=== PATIENT | male | born 1940 | race Caucasian/White ===

== ENCOUNTER 2017-07-22 16:42 | Inpatient (IN) ==
[2017-07-22 18:30] LABS: Basophils % 0.9 % (0.0-0.8); Eosinophils # 0.1 10*3/uL (0.0-0.87); Eosinophils % 2.1 % (0.00-10.9); Immature Granulocytes % 0.3 %; Immature Granulocytes Absolute 0.01 #; Lymphocytes % 31.1 % (21.2-54.2); Mean Corpuscular HGB Conc 34.4 GM/DL (32-36); Mean Corpuscular Hemoglobin 34 PG (27-34); Mean Corpuscular Volume 98.2 FL (87-102); Monocytes # 0.5 10*3/uL (0.11-0.8); Monocytes % 15.9 % (1.7-12.7); Neutrophils # 1.6 10*3/uL (1.4-7.4); Neutrophils % 49.7 % (38.7-73.9); Platelet Count 50 T/CUMM (130-400); Red Blood Count 3.26 MC/CUMM (3.8-5.5); Red Cell Distribution Width 12.9 % (9.3-17.3); White Blood Count 3.3 T/CUMM (4-12)
[2017-07-22 18:56] LABS: Osmolality,Calculated 280.4 MOS/KG (273-304); Potassium 4.1 MMOL/L (3.5-5.1)
[2017-07-22 19:00] LABS: Alanine Aminotransferase 25 U/L (16-61); Albumin 2.7 G/DL (3.4-5.0); Alkaline Phosphatase 181 U/L (45-117); Aspartate Amino Transferase 35 U/L (0-37); Blood Urea Nitrogen 13 MG/DL (7-18); Glucose 127 MG/DL (74-106); Osmolality,Calculated 280.4 MOS/KG (273-304); Sodium 140 MMOL/L (136-145); Total Protein 5.9 G/DL (6.4-8.3); Troponin I Only 0.029 NG/ML (0.00-0.045)
[2017-07-22] MEDS ORDERED: oxyCODONE/ACETAMINOPHEN 5-325 MG TABLET PO STA ×2 (20:27→22:39)
[2017-07-22] MEDS ORDERED: oxyCODONE/ACETAMINOPHEN 5-325 MG TABLET ONE ×2 (20:34→22:36)
[2017-07-23] MEDS ORDERED: ONDANSETRON 4 MG/2 ML VIAL IV PRN (00:25)
[2017-07-23] MEDS ORDERED: diphenhydrAMINE CAP 25 MG CAPSULE PO PRN (00:25)
[2017-07-23] MEDS ORDERED: DOCUSATE SODIUM 100 MG CAPSULE PO PRN (00:25)
[2017-07-23] MEDS ORDERED: ACETAMINOPHEN 325 MG TABLET PO PRN (00:25)
[2017-07-23] MEDS ORDERED: ENOXAPARIN 80 MG/0.8 ML SYRINGE SUBCUT ONE (00:30)
[2017-07-23] MEDS ORDERED: LORazepam 0.5 MG TABLET PO PRN (01:20)
[2017-07-23] MEDS ORDERED: MECLIZINE 25 MG TABLET PO PRN (01:20)
[2017-07-23] MEDS ORDERED: hydrALAZINE 20 MG/1 ML VIAL IV PRN (01:20)
[2017-07-23] MEDS: CARISOPRODOL 350 MG TABLET PO PRN (01:56)
[2017-07-23] MEDS: SODIUM CHLORIDE 0.45% 1,000 ML IV SCH ×2 (01:56→23:58)
[2017-07-23 05:09] LABS: Basophils % 0.8 % (0.0-0.8); Eosinophils # 0.1 10*3/uL (0.0-0.87); Eosinophils % 2.7 % (0.00-10.9); Hemoglobin 11.4 GM/DL (14.0-18.0); Immature Granulocytes % 0.2 %; Immature Granulocytes Absolute 0.01 #; Lymphocytes # 1.6 10*3/uL (1.4-4.0); Lymphocytes % 33.5 % (21.2-54.2); Mean Corpuscular HGB Conc 35.6 GM/DL (32-36); Mean Corpuscular Hemoglobin 34 PG (27-34); Mean Corpuscular Volume 95.8 FL (87-102); Mean Platelet Volume 10.8 FL (9.6-12.0); Monocytes # 0.6 10*3/uL (0.11-0.8); NRBC # 0.02 10*3/uL; Neutrophils # 2.4 10*3/uL (1.4-7.4); Neutrophils % 50.8 % (38.7-73.9); Red Blood Count 3.34 MC/CUMM (3.8-5.5); Red Cell Distribution Width 12.7 % (9.3-17.3); White Blood Count 4.7 T/CUMM (4-12)
[2017-07-23 05:12] LABS: Platelet Count 54 T/CUMM (130-400)
[2017-07-23 05:41] LABS: Calcium 8.1 MG/DL (8.5-10.1); Osmolality,Calculated 284.8 MOS/KG (273-304); Risk Ratio 2.23; VLDL CHOLESTEROL 14.6 MG/DL
[2017-07-23 07:43] LABS: Hypochromasia Slight
[2017-07-23] MEDS ORDERED: BISACODYL 5 MG TABLET PO PRN (09:32)
[2017-07-23] MEDS: MORPHINE 4 MG/1 ML VIAL IV PRN ×3 (09:42→19:26)
[2017-07-23] MEDS: TAMSULOSIN 0.4 MG CAPSULE PO SCH ×2 (10:56→20:51)
[2017-07-23] MEDS: LORATADINE 10 MG TABLET PO SCH (10:56)
[2017-07-23] MEDS: PANTOPRAZOLE 40 MG TABLET PO SCH (10:56)
[2017-07-23] MEDS: ASPIRIN EC 81 MG TABLET PO SCH (10:56)
[2017-07-23] MEDS: oxyCODONE/ACETAMINOPHEN 5-325 MG TABLET PO SCH ×3 (10:56→20:51)
[2017-07-23] MEDS: OMEGA 3 ACID ETHYL ESTERS 1 GM CAPSULE PO SCH (10:57)
[2017-07-23] MEDS: traZODone 50 MG TABLET PO SCH (20:51)
[2017-07-23] MEDS: ZALEPLON 5 MG CAPSULE PO PRN (23:51)
[2017-07-24] MEDS: CARISOPRODOL 350 MG TABLET PO PRN (00:17)
[2017-07-24] MEDS: MORPHINE 4 MG/1 ML VIAL IV PRN (04:53)
[2017-07-24 05:24] LABS: Basophils # 0.1 10*3/uL (0.0-0.2); Basophils % 1.4 % (0.0-0.8); Eosinophils # 0.1 10*3/uL (0.0-0.87); Eosinophils % 3.6 % (0.00-10.9); Hematocrit 33.3 VOL% (42.0-52.0); Hemoglobin 11.3 GM/DL (14.0-18.0); Lymphocytes # 1.6 10*3/uL (1.4-4.0); Mean Corpuscular HGB Conc 33.9 GM/DL (32-36); Mean Corpuscular Hemoglobin 34 PG (27-34); Mean Corpuscular Volume 99.7 FL (87-102); Mean Platelet Volume 10.8 FL (9.6-12.0); Monocytes # 0.5 10*3/uL (0.11-0.8); Monocytes % 13.5 % (1.7-12.7); Neutrophils # 1.3 10*3/uL (1.4-7.4); Neutrophils % 36.5 % (38.7-73.9); Platelet Count 52 T/CUMM (130-400); Red Blood Count 3.34 MC/CUMM (3.8-5.5); White Blood Count 3.6 T/CUMM (4-12)
[2017-07-24 05:53] LABS: Calcium 8.1 MG/DL (8.5-10.1); Osmolality,Calculated 281.1 MOS/KG (273-304); Potassium 4.2 MMOL/L (3.5-5.1)
[2017-07-24 07:01] LABS: Hypochromasia 2+; Lymphocytes 38 % (20-55); Platelet Estimate Decreased; Segmented Neutrophils 53 % (50-85); Total Cells Counted 100
[2017-07-24] MEDS: oxyCODONE/ACETAMINOPHEN 5-325 MG TABLET PO SCH ×3 (08:05→20:12)
[2017-07-24] MEDS: TAMSULOSIN 0.4 MG CAPSULE PO SCH ×2 (08:40→21:13)
[2017-07-24] MEDS: ASPIRIN EC 81 MG TABLET PO SCH (08:40)
[2017-07-24] MEDS: POLYETHYLENE GLYCOL POWDER 17 GM PACK PO SCH (08:40)
[2017-07-24] MEDS: OMEGA 3 ACID ETHYL ESTERS 1 GM CAPSULE PO SCH (08:40)
[2017-07-24] MEDS: LORATADINE 10 MG TABLET PO SCH (08:40)
[2017-07-24] MEDS: PANTOPRAZOLE 40 MG TABLET PO SCH (08:41)
[2017-07-24 15:36] LABS: Apearance,Urine CLEAR (Clear); Bilirubin,Urine Negative (Negative); Blood, Urine Small mg/dL (Negative); Glucose,Urine (UA) Negative (Negative); Ketones,Urine Negative (Negative); Nitrite,Urine Negative (Negative); Protein,Urine Negative; RBC,Urine <1 /HPF (0-4); Urine Color Yellow (Yellow); Urine Specific Gravity 1.008 (1.001-1.035); WBC,Urine <1 /HPF (0-6)
[2017-07-24] MEDS ORDERED: SODIUM CHLORIDE 0.9% 1,000 ML IV PRN (16:41)
[2017-07-24] MEDS: SODIUM CHLORIDE 0.45% 1,000 ML IV SCH (20:12)
[2017-07-24] MEDS: ZALEPLON 5 MG CAPSULE PO PRN (21:13)
[2017-07-24] MEDS: traZODone 50 MG TABLET PO SCH (21:13)
[2017-07-25 04:27] LABS: Basophils % 0.9 % (0.0-0.8); Eosinophils # 0.1 10*3/uL (0.0-0.87); Eosinophils % 3.5 % (0.00-10.9); Hematocrit 30.1 VOL% (42.0-52.0); Hemoglobin 10.6 GM/DL (14.0-18.0); Immature Granulocytes % 0.3 %; Immature Granulocytes Absolute 0.01 #; Lymphocytes # 1.2 10*3/uL (1.4-4.0); Lymphocytes % 38.5 % (21.2-54.2); Mean Corpuscular HGB Conc 35.2 GM/DL (32-36); Mean Corpuscular Hemoglobin 34 PG (27-34); Mean Corpuscular Volume 95.6 FL (87-102); Mean Platelet Volume 9.9 FL (9.6-12.0); Monocytes # 0.4 10*3/uL (0.11-0.8); Monocytes % 12.9 % (1.7-12.7); Neutrophils # 1.4 10*3/uL (1.4-7.4); Neutrophils % 43.9 % (38.7-73.9); Red Blood Count 3.15 MC/CUMM (3.8-5.5); Red Cell Distribution Width 12.9 % (9.3-17.3); White Blood Count 3.2 T/CUMM (4-12)
[2017-07-25 04:29] LABS: Platelet Count 61 T/CUMM (130-400)
[2017-07-25 04:49] LABS: Hypochromasia 1+; Microcytosis 1+; Platelet Estimate Decreased
[2017-07-25 04:54] LABS: Calcium 8.1 MG/DL (8.5-10.1); Potassium 3.9 MMOL/L (3.5-5.1)
[2017-07-25] MEDS: MORPHINE 4 MG/1 ML VIAL IV PRN (05:04)
[2017-07-25] MEDS ORDERED: PROPOFOL 200 MG/20 ML VIAL IV ONE (07:46)
[2017-07-25] MEDS ORDERED: LIDOCAINE 1% 5 ML VIAL ONE (07:46)
[2017-07-25 08:46] LABS: INR 1.3; PT Patient Result 13.4 SECS; Partial Thromboplastin Time 31.7 SECS (0-40)
[2017-07-25] MEDS: PANTOPRAZOLE 40 MG TABLET PO SCH (09:30)
[2017-07-25] MEDS: LORATADINE 10 MG TABLET PO SCH (09:31)
[2017-07-25] MEDS: OMEGA 3 ACID ETHYL ESTERS 1 GM CAPSULE PO SCH (09:31)
[2017-07-25] MEDS: TAMSULOSIN 0.4 MG CAPSULE PO SCH (09:31)
[2017-07-25] MEDS: oxyCODONE/ACETAMINOPHEN 5-325 MG TABLET PO SCH (09:32)
[2017-07-25] MEDS: POLYETHYLENE GLYCOL POWDER 17 GM PACK PO SCH (09:36)
[2017-07-25 11:55] VITALS: BP 166/68
[2017-07-26] MEDS ORDERED: CHOLECALCIFEROL 5,000 UNIT TABLET PO SCH (00:27)
== END 2017-07-25 14:24 | disposition home or self-care (01) | DRG 384 ==
LOC: EDUNIT# → EDBD → N.ED 16:42 → N.EDINP 23:23 → N.TELEN 23:54
PROVIDERS: ADMIT Internal Medicine Cardiovascular Disease; ATTEND Internal Medicine Cardiovascular Disease

== ENCOUNTER 2018-07-07 16:54 | Inpatient (IN) ==
[2018-07-07 18:20] LABS: Basophils % 0.5 % (0.0-0.8); Eosinophils # 0.1 10*3/uL (0.0-0.87); Eosinophils % 1.6 % (0.00-10.9); Hematocrit 40.9 VOL% (42.0-52.0); Hemoglobin 13.8 GM/DL (14.0-18.0); Immature Granulocytes % 0.5 %; Immature Granulocytes Absolute 0.04 #; Lymphocytes # 1.4 10*3/uL (1.4-4.0); Lymphocytes % 17.4 % (21.2-54.2); Mean Corpuscular HGB Conc 33.7 GM/DL (32-36); Mean Corpuscular Hemoglobin 34 PG (27-34); Mean Corpuscular Volume 99.8 FL (87-102); Mean Platelet Volume 10.8 FL (9.6-12.0); Monocytes # 1.1 10*3/uL (0.11-0.8); Monocytes % 14.4 % (1.7-12.7); Neutrophils # 5.2 10*3/uL (1.4-7.4); Neutrophils % 65.6 % (38.7-73.9); Platelet Count 55 T/CUMM (130-400); Red Cell Distribution Width 13.3 % (9.3-17.3); White Blood Count 7.9 T/CUMM (4-12)
[2018-07-07 18:30] LABS: Eosinophils 1 % (0-10); Lymphocytes 18 % (20-55); Segmented Neutrophils 72 % (50-85); Total Cells Counted 100
[2018-07-07 18:32] LABS: Hypochromasia 1+; Platelet Estimate Decreased
[2018-07-07 19:04] LABS: Albumin 3.1 G/DL (3.4-5.0); Bilirubin,Total 1.7 MG/DL (0.2-1.0); Calcium 9.4 MG/DL (8.5-10.1); Osmolality,Calculated 286.5 MOS/KG (273-304); Potassium 3.1 MMOL/L (3.5-5.1); Total Protein 6.8 G/DL (6.4-8.3)
[2018-07-07] MEDS ORDERED: oxyCODONE/ACETAMINOPHEN 5-325 MG TABLET PO STA (19:55)
[2018-07-07 20:07] LABS: Apearance,Urine CLEAR (Clear); Bilirubin,Urine Negative (Negative); Blood, Urine Small mg/dL (Negative); Glucose,Urine (UA) 50 mg/dL (Negative); Ketones,Urine Negative (Negative); Mucus,Urine Occasional /LPF (Occasional); Nitrite,Urine Negative (Negative); Protein,Urine Negative; RBC,Urine 3 /HPF (0-4); Urine Color Yellow (Yellow); Urine Specific Gravity 1.018 (1.001-1.035); Urine Urobilinogen < 2.0 EU/DL (0.2-1.0); WBC,Urine 1 /HPF (0-6)
[2018-07-07] MEDS ORDERED: POTASSIUM CHLORIDE 20 MEQ TABLET PO STA (20:08)
[2018-07-07] MEDS ORDERED: LACTULOSE 20 GM/30 ML UDCUP PO STA (21:11)
[2018-07-07] MEDS ORDERED: GLUCAGON 1 MG VIAL IM PRN (23:28)
[2018-07-07] MEDS ORDERED: DEXTROSE 50% 25 GM/50 ML SYRINGE IV PRN (23:28)
[2018-07-07] MEDS ORDERED: ONDANSETRON 4 MG/2 ML VIAL IV PRN (23:28)
[2018-07-07] MEDS ORDERED: ASPIRIN EC 81 MG TABLET PO SCH (23:28)
[2018-07-08] MEDS: TAMSULOSIN 0.4 MG CAPSULE PO SCH ×2 (00:22→08:18)
[2018-07-08] MEDS: oxyCODONE/ACETAMINOPHEN 5-325 MG TABLET PO PRN ×2 (00:31→08:16)
[2018-07-08 04:41] LABS: Basophils # 0.1 10*3/uL (0.0-0.2); Basophils % 0.8 % (0.0-0.8); Eosinophils # 0.1 10*3/uL (0.0-0.87); Eosinophils % 2.1 % (0.00-10.9); Hematocrit 36.1 VOL% (42.0-52.0); Hemoglobin 12.2 GM/DL (14.0-18.0); Immature Granulocytes % 0.3 %; Immature Granulocytes Absolute 0.02 #; Lymphocytes # 1.6 10*3/uL (1.4-4.0); Lymphocytes % 25.1 % (21.2-54.2); Mean Corpuscular HGB Conc 33.8 GM/DL (32-36); Mean Corpuscular Hemoglobin 34 PG (27-34); Mean Corpuscular Volume 100.3 FL (87-102); Mean Platelet Volume 9.8 FL (9.6-12.0); Monocytes # 0.9 10*3/uL (0.11-0.8); Monocytes % 13.9 % (1.7-12.7); Neutrophils # 3.6 10*3/uL (1.4-7.4); Neutrophils % 57.8 % (38.7-73.9); Red Cell Distribution Width 13.2 % (9.3-17.3); White Blood Count 6.3 T/CUMM (4-12)
[2018-07-08 04:44] LABS: Platelet Count 49 T/CUMM (130-400)
[2018-07-08 05:04] LABS: Albumin 2.6 G/DL (3.4-5.0); Bilirubin,Total 2.1 MG/DL (0.2-1.0); Calcium 8.5 MG/DL (8.5-10.1); Osmolality,Calculated 285.4 MOS/KG (273-304); Potassium 2.9 MMOL/L (3.5-5.1); Risk Ratio 2.79; Total Protein 6.3 G/DL (6.4-8.3); VLDL CHOLESTEROL 20.2 MG/DL
[2018-07-08] MEDS: POTASSIUM CHLORIDE 20 MEQ TABLET PO PRN ×2 (06:11→12:21)
[2018-07-08] MEDS ORDERED: FUROSEMIDE 20 MG TABLET PO SCH (08:00)
[2018-07-08] MEDS: POLYETHYLENE GLYCOL POWDER 17 GM PACK PO SCH ×2 (08:16→08:23)
[2018-07-08] MEDS: LACTULOSE 20 GM/30 ML UDCUP PO SCH ×2 (08:17→16:54)
[2018-07-08] MEDS: INSULIN LISPRO 100 UNIT/ML SUBCUT SCH ×3 (08:18→16:56)
[2018-07-08] MEDS ORDERED: LORATADINE 10 MG TABLET PO SCH (09:00)
[2018-07-08] MEDS ORDERED: FERROUS GLUCONATE 324 MG TABLET PO SCH (09:00)
[2018-07-08] MEDS ORDERED: metOLazone 2.5 MG TABLET PO SCH (09:00)
[2018-07-08] MEDS ORDERED: PANTOPRAZOLE 40 MG TABLET PO SCH (09:00)
[2018-07-08] MEDS ORDERED: POTASSIUM CHLORIDE 20 MEQ TABLET PO SCH (09:00)
[2018-07-08 15:42] VITALS: BP 141/63
[2018-07-08] MEDS ORDERED: TAMSULOSIN 0.4 MG CAPSULE PO SCH (21:00)
== END 2018-07-08 16:54 | disposition home or self-care (01) | DRG 442 ==
LOC: N.ED 16:54 → N.TELES 23:25 → SUATTDRO 23:25 → N.TELES 23:38
PROVIDERS: ADMIT Internal Medicine; ATTEND Internal Medicine

== ENCOUNTER 2018-12-13 20:04 | Observation (INO) ==
[2018-12-13] MEDS ORDERED: ONDANSETRON 4 MG/2 ML VIAL IV PRN (21:30)
[2018-12-13] MEDS ORDERED: DEXTROSE 50% 25 GM/50 ML VIAL IV PRN (21:30)
[2018-12-13] MEDS ORDERED: GLUCAGON 1 MG VIAL IM PRN (21:30)
[2018-12-13] MEDS ORDERED: ACETAMINOPHEN 325 MG TABLET PO PRN (21:30)
[2018-12-13 22:27] LABS: Basophils % 0.6 % (0.0-0.8); Eosinophils % 0.6 % (0.00-10.9); Hematocrit 38.6 VOL% (42.0-52.0); Immature Granulocytes % 0.3 %; Immature Granulocytes Absolute 0.01 #; Lymphocytes # 0.5 10*3/uL (1.4-4.0); Lymphocytes % 14.9 % (21.2-54.2); Mean Corpuscular HGB Conc 33.7 GM/DL (32-36); Mean Corpuscular Volume 102.9 FL (87-102); Mean Platelet Volume 9.7 FL (9.6-12.0); Neutrophils % 77.6 % (38.7-73.9); Red Blood Count 3.75 MC/CUMM (3.8-5.5); Red Cell Distribution Width 14.1 % (9.3-17.3); White Blood Count 3.4 T/CUMM (4-12)
[2018-12-13 22:28] LABS: Platelet Count 41 T/CUMM (130-400)
[2018-12-13] MEDS: INSULIN REGULAR 100 UNIT/ML SUBCUT SCH (22:31)
[2018-12-13 22:43] LABS: Albumin 2.9 G/DL (3.4-5.0); Bilirubin,Total 1.6 MG/DL (0.2-1.0); Calcium 8.8 MG/DL (8.5-10.1); Osmolality,Calculated 295.7 MOS/KG (273-304); Total Protein 6.9 G/DL (6.4-8.3)
[2018-12-13 22:44] LABS: Platelet Estimate Decreased
[2018-12-13] MEDS ORDERED: MECLIZINE 25 MG TABLET PO PRN (23:45)
[2018-12-13] MEDS ORDERED: oxyCODONE/ACETAMINOPHEN 5-325 MG TABLET PO PRN (23:45)
[2018-12-13] MEDS ORDERED: TAMSULOSIN 0.4 MG CAPSULE PO SCH (23:45)
[2018-12-14 06:22] LABS: Basophils % 0.2 % (0.0-0.8); Eosinophils % 0.2 % (0.00-10.9); Hematocrit 34.3 VOL% (42.0-52.0); Hemoglobin 11.8 GM/DL (14.0-18.0); Immature Granulocytes % 0.4 %; Immature Granulocytes Absolute 0.02 #; Lymphocytes # 0.6 10*3/uL (1.4-4.0); Lymphocytes % 12.5 % (21.2-54.2); Mean Corpuscular HGB Conc 34.4 GM/DL (32-36); Mean Corpuscular Volume 100.6 FL (87-102); Mean Platelet Volume 10.3 FL (9.6-12.0); Monocytes % 8.6 % (1.7-12.7); Neutrophils % 78.1 % (38.7-73.9); Platelet Count 43 T/CUMM (130-400); Red Blood Count 3.41 MC/CUMM (3.8-5.5); Red Cell Distribution Width 13.5 % (9.3-17.3); White Blood Count 4.6 T/CUMM (4-12)
[2018-12-14 06:44] LABS: Hypochromasia 1+
[2018-12-14 06:46] LABS: Microcytosis Slight; Platelet Estimate Decreased
[2018-12-14] MEDS: INSULIN REGULAR 100 UNIT/ML SUBCUT SCH (07:18)
[2018-12-14 07:42] VITALS: BP 120/56
[2018-12-14] MEDS ORDERED: FUROSEMIDE 20 MG TABLET PO SCH (08:00)
[2018-12-14] MEDS ORDERED: CHOLECALCIFEROL 1,000 UNIT TABLET PO SCH (09:00)
[2018-12-14] MEDS ORDERED: NON-FORMULARY MEDICATION (Omeprazole Magnesium [Prilosec Otc] 20 MG) PO SCH (09:00)
[2018-12-14] MEDS ORDERED: LACTULOSE 20 GM/30 ML UDCUP PO SCH (09:00)
[2018-12-14] MEDS ORDERED: POTASSIUM CHLORIDE 20 MEQ TABLET PO SCH (09:00)
[2018-12-14] MEDS ORDERED: PANTOPRAZOLE 40 MG TABLET PO SCH (09:00)
[2018-12-14] MEDS ORDERED: POLYETHYLENE GLYCOL POWDER 17 GM PACK PO SCH (09:00)
[2018-12-14] MEDS ORDERED: FERROUS GLUCONATE 324 MG TABLET PO SCH (09:00)
[2018-12-14] MEDS ORDERED: LORATADINE 10 MG TABLET PO SCH (09:00)
[2018-12-14] MEDS ORDERED: ASPIRIN EC 81 MG TABLET PO SCH (21:00)
== END 2018-12-14 10:10 | disposition home or self-care (01) ==
LOC: N.2E
PROVIDERS: ADMIT Internal Medicine; ATTEND Hospitalist

== ENCOUNTER 2021-05-20 20:49 | Inpatient (IN) ==
[2021-05-20] MEDS ORDERED: SODIUM CHLORIDE 0.9% 500 ML IV STA (22:53)
[2021-05-20] MEDS ORDERED: ALBUTEROL/IPRATROPIUM 3 ML NEB RESP TX STA (22:53)
[2021-05-20] MEDS ORDERED: ONDANSETRON 4 MG/2 ML VIAL IV STA (22:53)
[2021-05-20] MEDS ORDERED: methylPREDNISolone SOD SUC 125 MG/2 ML VIAL IV STA (22:53)
[2021-05-20 23:52] LABS: Basophils % 0.4 % (0.0-0.8); Eosinophils % 0.8 % (0.00-10.9); Hematocrit 42.2 VOL% (42.0-52.0); Hemoglobin 14.8 GM/DL (14.0-18.0); Immature Granulocytes % 0.4 %; Immature Granulocytes Absolute 0.02 #; Lymphocytes # 0.3 10*3/uL (1.4-4.0); Lymphocytes % 5.7 % (21.2-54.2); Mean Corpuscular HGB Conc 35.1 GM/DL (32-36); Mean Corpuscular Volume 102.9 FL (87-102); Mean Platelet Volume 10.9 FL (9.6-12.0); Monocytes % 12.2 % (1.7-12.7); Neutrophils % 80.5 % (38.7-73.9); Red Cell Distribution Width 13.6 % (9.3-17.3); White Blood Count 4.9 T/CUMM (4-12)
[2021-05-20 23:56] LABS: Platelet Count 28 T/CUMM (130-400)
[2021-05-21 00:13] LABS: Alanine Aminotransferase 26 U/L (16-61); Albumin 2.6 G/DL (3.4-5.0); Alkaline Phosphatase 77 U/L (45-117); Amylase 18 U/L (25-115); Aspartate Amino Transferase 59 U/L (0-37); Blood Urea Nitrogen 20 MG/DL (7-18); Calcium 8.3 MG/DL (8.5-10.1); Carbon Dioxide 21 MMOL/L (21-32); Estimated Glom Filtration Rate 75 ML/MIN; Glucose 129 MG/DL (74-106); Potassium 4.7 MMOL/L (3.5-5.1); Sodium 136 MMOL/L (136-145); Total Protein 6.3 G/DL (6.4-8.2)
[2021-05-21 00:15] LABS: Lactic Acid 2.3 MMOL/L (0.4-2.0)
[2021-05-21] MEDS ORDERED: SODIUM CHLORIDE 0.9% 500 ML IV ONE (00:19)
[2021-05-21] MEDS ORDERED: PIPERACILLIN/TAZOBACTAM 3,375 MG in SODIUM CHLORIDE 0.9% 100 ML IV STA (00:35)
[2021-05-21 01:03] LABS: Platelet Estimate Decreased
[2021-05-21] MEDS ORDERED: GLUCAGON 1 MG VIAL IM PRN (01:15)
[2021-05-21] MEDS ORDERED: ALBUTEROL 2.5 MG/3 ML NEB RESP TX PRN (01:15)
[2021-05-21] MEDS ORDERED: DEXTROSE 10% 250 ML BAG IV PRN (01:15)
[2021-05-21] MEDS ORDERED: ONDANSETRON 4 MG/2 ML VIAL IV PRN (01:15)
[2021-05-21 02:35] LABS: Bilirubin,Urine Negative (Negative); Blood, Urine Moderate mg/dL (Negative); Glucose,Urine (UA) Negative (Negative); Ketones,Urine Negative (Negative); Mucus,Urine Few /LPF (Occasional); Nitrite,Urine Positive (Negative); Protein,Urine 30 MG/DL; Squamous Epithelial Cell,Urine Occasional /HPF (0-10); Urine Appearance Slightly Hazy (Clear); Urine Color Amber (Yellow); Urine Specific Gravity 1.026 (1.001-1.035); Urine Urobilinogen < 2.0 EU/DL (<2.0)
[2021-05-21] MEDS ORDERED: VANCOMYCIN INJ 1,000 MG in SODIUM CHLORIDE 0.9% 250 ML IV SCH (03:00)
[2021-05-21] MEDS ORDERED: oxyCODONE/ACETAMINOPHEN 5-325 MG TABLET PO ONE (03:58)
[2021-05-21] MEDS: SODIUM CHLORIDE 0.9% 1,000 ML IV SCH ×3 (04:24→17:53)
[2021-05-21 05:35] LABS: Basophils % 0.6 % (0.0-0.8); Hematocrit 40.4 VOL% (42.0-52.0); Hemoglobin 14.2 GM/DL (14.0-18.0); Immature Granulocytes % 0.6 %; Immature Granulocytes Absolute 0.02 #; Lymphocytes # 0.2 10*3/uL (1.4-4.0); Lymphocytes % 5.5 % (21.2-54.2); Mean Corpuscular HGB Conc 35.1 GM/DL (32-36); Mean Corpuscular Volume 103.1 FL (87-102); Mean Platelet Volume 9.4 FL (9.6-12.0); Monocytes % 3.4 % (1.7-12.7); Neutrophils % 89.9 % (38.7-73.9); Red Blood Count 3.92 MC/CUMM (3.8-5.5); Red Cell Distribution Width 13.7 % (9.3-17.3); White Blood Count 3.5 T/CUMM (4-12)
[2021-05-21 05:49] LABS: Platelet Count 29 T/CUMM (130-400)
[2021-05-21 05:57] LABS: Band Neutrophils 2 % (0-10); Lymphocytes 1 % (20-55); Segmented Neutrophils 93 % (50-85); Total Cells Counted 100
[2021-05-21 05:58] LABS: Platelet Estimate Decreased
[2021-05-21 06:05] LABS: Albumin 2.5 G/DL (3.4-5.0); Bilirubin,Total 2.2 MG/DL (0.20-1.00); Calcium 8.3 MG/DL (8.5-10.1); Potassium 4.3 MMOL/L (3.5-5.1); Risk Ratio 2.44; Thyroid Stimulating Hormone 0.694 uIU/ml (0.358-3.74); Total Protein 5.9 G/DL (6.4-8.2); VLDL Cholesterol 16.2 MG/DL
[2021-05-21] MEDS: INSULIN LISPRO 100 UNIT/ML SUBCUT SCH ×4 (07:26→21:08)
[2021-05-21] MEDS ORDERED: LACTULOSE 20 GM/30 ML UDCUP PO SCH (09:00)
[2021-05-21] MEDS ORDERED: PIPERACILLIN/TAZOBACTAM 3,375 MG in SODIUM CHLORIDE 0.9% 100 ML IV SCH (09:00)
[2021-05-21] MEDS: PANTOPRAZOLE 40 MG TABLET PO SCH (09:10)
[2021-05-21] MEDS: CIPROFLOXACIN INJ 400 MG/200 ML PREMIX IV SCH ×2 (09:10→21:05)
[2021-05-21] MEDS: metroNIDAZOLE INJ 500 MG in PREMIX 1 EACH IV SCH ×2 (11:02→17:57)
[2021-05-21] MEDS: oxyCODONE/ACETAMINOPHEN 5-325 MG TABLET PO PRN (13:26)
[2021-05-21 13:29] LABS: AFP Tumor 3.6 NG/ML (0-8); Hepatitis B Surface Ag Quant 0.15 Index; Hepatitis B Surface Ag Result Non-Reactive (NonReactive); Hepatitis C Virus Ab Quant 0.66 Index; Hepatitis C Virus Ab Result Non-Reactive (NonReactive)
[2021-05-21] MEDS: COLESTIPOL 1 GM TABLET PO SCH (21:02)
[2021-05-21] MEDS: TAMSULOSIN 0.4 MG CAPSULE PO SCH (21:04)
[2021-05-22] MEDS: metroNIDAZOLE INJ 500 MG in PREMIX 1 EACH IV SCH ×2 (04:16→09:24)
[2021-05-22] MEDS: SODIUM CHLORIDE 0.9% 1,000 ML IV SCH (04:16)
[2021-05-22 06:15] LABS: Basophils % 0.2 % (0.0-0.8); Hematocrit 36.6 VOL% (42.0-52.0); Hemoglobin 12.9 GM/DL (14.0-18.0); Immature Granulocytes % 0.7 %; Immature Granulocytes Absolute 0.04 #; Lymphocytes # 0.4 10*3/uL (1.4-4.0); Lymphocytes % 6.9 % (21.2-54.2); Mean Corpuscular HGB Conc 35.2 GM/DL (32-36); Mean Corpuscular Volume 103.4 FL (87-102); Mean Platelet Volume 10.2 FL (9.6-12.0); Monocytes % 8.7 % (1.7-12.7); Neutrophils % 83.5 % (38.7-73.9); Red Blood Count 3.54 MC/CUMM (3.8-5.5); Red Cell Distribution Width 13.4 % (9.3-17.3); White Blood Count 5.4 T/CUMM (4-12)
[2021-05-22 06:23] LABS: INR 1.5; PT Patient Result 16.1 SECS (10.5-12.0); Platelet Count 29 T/CUMM (130-400)
[2021-05-22 06:33] LABS: Band Neutrophils 1 % (0-10); Hypochromia Slight; Lymphocytes 3 % (20-55); Microcytosis Slight; Platelet Estimate Decreased; Segmented Neutrophils 92 % (50-85); Total Cells Counted 100
[2021-05-22 06:36] LABS: Albumin 1.9 G/DL (3.4-5.0); Calcium 8.1 MG/DL (8.5-10.1); Osmolality,Calculated 283.4 MOS/KG (273-304)
[2021-05-22] MEDS: INSULIN LISPRO 100 UNIT/ML SUBCUT SCH ×4 (09:24→20:31)
[2021-05-22] MEDS: TAMSULOSIN 0.4 MG CAPSULE PO SCH ×2 (09:25→20:15)
[2021-05-22] MEDS: COLESTIPOL 1 GM TABLET PO SCH ×2 (09:25→20:15)
[2021-05-22] MEDS: SPIRONOLACTONE 25 MG TABLET PO SCH (09:26)
[2021-05-22] MEDS: PANTOPRAZOLE 40 MG TABLET PO SCH (09:26)
[2021-05-22] MEDS: CIPROFLOXACIN INJ 400 MG/200 ML PREMIX IV SCH (11:02)
[2021-05-22] MEDS: APIXABAN 5 MG TABLET PO SCH ×2 (11:38→20:15)
[2021-05-22] MEDS: cefTRIAXone 1,000 MG in SODIUM CHLORIDE 0.9% 100 ML IV SCH (11:38)
[2021-05-22] MEDS: RIFAXIMIN 550 MG TABLET PO SCH (20:15)
[2021-05-23] MEDS: oxyCODONE/ACETAMINOPHEN 5-325 MG TABLET PO PRN (02:36)
[2021-05-23 05:50] LABS: Basophils % 0.6 % (0.0-0.8); Eosinophils # 0.1 10*3/uL (0.0-0.87); Eosinophils % 1.5 % (0.00-10.9); Hematocrit 40.7 VOL% (42.0-52.0); Immature Granulocytes % 0.3 %; Immature Granulocytes Absolute 0.01 #; Lymphocytes # 0.8 10*3/uL (1.4-4.0); Lymphocytes % 23.3 % (21.2-54.2); Mean Corpuscular HGB Conc 34.4 GM/DL (32-36); Mean Corpuscular Volume 104.1 FL (87-102); Mean Platelet Volume 9.9 FL (9.6-12.0); Monocytes % 12.8 % (1.7-12.7); Neutrophils % 61.5 % (38.7-73.9); Red Blood Count 3.91 MC/CUMM (3.8-5.5); Red Cell Distribution Width 13.8 % (9.3-17.3); White Blood Count 3.4 T/CUMM (4-12)
[2021-05-23 06:01] LABS: Calcium 8.1 MG/DL (8.5-10.1); Osmolality,Calculated 282.3 MOS/KG (273-304); Potassium 3.7 MMOL/L (3.5-5.1)
[2021-05-23 06:05] LABS: Platelet Count 27 T/CUMM (130-400)
[2021-05-23 06:16] LABS: Eosinophils 1 % (0-10); Lymphocytes 28 % (20-55); Segmented Neutrophils 66 % (50-85); Total Cells Counted 100
[2021-05-23 06:17] LABS: Hypochromia 1+; Microcytosis Slight; Platelet Estimate Decreased
[2021-05-23] MEDS: INSULIN LISPRO 100 UNIT/ML SUBCUT SCH ×4 (08:14→21:41)
[2021-05-23] MEDS ORDERED: SODIUM CHLORIDE 0.9% 500 ML IV ONE (08:15)
[2021-05-23] MEDS ORDERED: LOPERAMIDE 2 MG CAPSULE PO PRN (09:08)
[2021-05-23] MEDS: TAMSULOSIN 0.4 MG CAPSULE PO SCH ×2 (10:35→22:07)
[2021-05-23] MEDS: COLESTIPOL 1 GM TABLET PO SCH (10:35)
[2021-05-23] MEDS: LACTATED RINGERS 1,000 ML IV SCH ×2 (10:35→22:07)
[2021-05-23] MEDS: SPIRONOLACTONE 25 MG TABLET PO SCH (10:35)
[2021-05-23] MEDS: PANTOPRAZOLE 40 MG TABLET PO SCH (10:36)
[2021-05-23] MEDS: RIFAXIMIN 550 MG TABLET PO SCH ×2 (10:36→22:07)
[2021-05-23] MEDS: cefTRIAXone 1,000 MG in SODIUM CHLORIDE 0.9% 100 ML IV SCH (11:39)
[2021-05-23] MEDS: LINEZOLID 600 MG TABLET PO SCH (22:07)
[2021-05-23] MEDS: LOPERAMIDE 2 MG CAPSULE PO PRN (22:07)
[2021-05-24] MEDS: COLESTIPOL 1 GM TABLET PO SCH ×2 (01:11→12:26)
[2021-05-24] MEDS: LOPERAMIDE 2 MG CAPSULE PO PRN (01:11)
[2021-05-24] MEDS: oxyCODONE/ACETAMINOPHEN 5-325 MG TABLET PO PRN ×2 (01:12→19:08)
[2021-05-24 05:20] LABS: Eosinophils # 0.1 10*3/uL (0.0-0.87); Eosinophils % 2.6 % (0.00-10.9); Hematocrit 41.5 VOL% (42.0-52.0); Hemoglobin 14.3 GM/DL (14.0-18.0); Immature Granulocytes % 0.3 %; Immature Granulocytes Absolute 0.01 #; Lymphocytes # 1.2 10*3/uL (1.4-4.0); Lymphocytes % 37.5 % (21.2-54.2); Mean Corpuscular HGB Conc 34.5 GM/DL (32-36); Mean Corpuscular Volume 103.5 FL (87-102); Monocytes % 10.9 % (1.7-12.7); Neutrophils % 47.7 % (38.7-73.9); Red Blood Count 4.01 MC/CUMM (3.8-5.5); Red Cell Distribution Width 13.5 % (9.3-17.3); White Blood Count 3.1 T/CUMM (4-12)
[2021-05-24 05:34] LABS: Albumin 1.8 G/DL (3.4-5.0); Bilirubin,Total 2.6 MG/DL (0.20-1.00); Calcium 7.9 MG/DL (8.5-10.1); Osmolality,Calculated 280.3 MOS/KG (273-304); Potassium 3.4 MMOL/L (3.5-5.1); Total Protein 4.9 G/DL (6.4-8.2)
[2021-05-24 05:43] LABS: Platelet Count 26 T/CUMM (130-400)
[2021-05-24 06:20] LABS: Microcytosis Slight; Platelet Estimate Decreased
[2021-05-24] MEDS: LACTATED RINGERS 1,000 ML IV SCH ×2 (07:49→22:43)
[2021-05-24] MEDS: INSULIN LISPRO 100 UNIT/ML SUBCUT SCH ×4 (07:56→22:35)
[2021-05-24] MEDS ORDERED: POTASSIUM CHLORIDE 20 MEQ TABLET PO ONE (08:00)
[2021-05-24] MEDS ORDERED: MAGNESIUM SULF RIDER 2 GM/50 ML PREMIX IV ONE (08:00)
[2021-05-24] MEDS: cefTRIAXone 1,000 MG in SODIUM CHLORIDE 0.9% 100 ML IV SCH (10:14)
[2021-05-24] MEDS: TAMSULOSIN 0.4 MG CAPSULE PO SCH ×2 (10:18→22:34)
[2021-05-24] MEDS: RIFAXIMIN 550 MG TABLET PO SCH ×2 (10:19→22:34)
[2021-05-24] MEDS: PANTOPRAZOLE 40 MG TABLET PO SCH (10:19)
[2021-05-24] MEDS: SPIRONOLACTONE 25 MG TABLET PO SCH (10:19)
[2021-05-24] MEDS: LINEZOLID 600 MG TABLET PO SCH ×2 (10:19→22:34)
[2021-05-24] MEDS: COLESEVELAM 625 MG TABLET PO SCH (18:27)
[2021-05-25] MEDS: oxyCODONE/ACETAMINOPHEN 5-325 MG TABLET PO PRN ×3 (02:54→18:43)
[2021-05-25 07:42] LABS: Albumin 1.9 G/DL (3.4-5.0); Bilirubin,Total 4.5 MG/DL (0.20-1.00); Calcium 7.7 MG/DL (8.5-10.1); Osmolality,Calculated 279.3 MOS/KG (273-304); Potassium 3.7 MMOL/L (3.5-5.1); Total Protein 4.9 G/DL (6.4-8.2)
[2021-05-25] MEDS: TAMSULOSIN 0.4 MG CAPSULE PO SCH ×2 (08:40→21:41)
[2021-05-25] MEDS: cefTRIAXone 1,000 MG in SODIUM CHLORIDE 0.9% 100 ML IV SCH (08:40)
[2021-05-25] MEDS: SPIRONOLACTONE 25 MG TABLET PO SCH (08:41)
[2021-05-25] MEDS: PANTOPRAZOLE 40 MG TABLET PO SCH (08:41)
[2021-05-25] MEDS: COLESEVELAM 625 MG TABLET PO SCH ×2 (08:41→18:42)
[2021-05-25] MEDS: LINEZOLID 600 MG TABLET PO SCH ×2 (08:41→21:41)
[2021-05-25] MEDS: RIFAXIMIN 550 MG TABLET PO SCH ×2 (08:41→21:41)
[2021-05-25] MEDS: INSULIN LISPRO 100 UNIT/ML SUBCUT SCH ×4 (08:50→21:43)
[2021-05-25] MEDS: LACTATED RINGERS 1,000 ML IV SCH ×3 (10:22→21:44)
[2021-05-25] MEDS: DESITIN 4OZ/NYSTATIN 15 GRAM MIXTURE PASTE TOP SCH ×2 (11:37→21:42)
[2021-05-25 12:35] LABS: Hematocrit 40.2 VOL% (42.0-52.0); Hemoglobin 13.9 GM/DL (14.0-18.0); Mean Corpuscular HGB Conc 34.6 GM/DL (32-36); Mean Corpuscular Volume 103.1 FL (87-102); Red Cell Distribution Width 13.7 % (9.3-17.3); White Blood Count 3.3 T/CUMM (4-12)
[2021-05-25 12:36] LABS: Basophils % 0.9 % (0.0-0.8); Eosinophils % 5.2 % (0.00-10.9); Immature Granulocytes % 0.6 %; Mean Platelet Volume 11.5 FL (9.6-12.0); Monocytes % 8.9 % (1.7-12.7); Neutrophils % 49.4 % (38.7-73.9)
[2021-05-25 12:38] LABS: Platelet Count 26 T/CUMM (130-400)
[2021-05-26] MEDS: oxyCODONE/ACETAMINOPHEN 5-325 MG TABLET PO PRN ×3 (03:13→20:14)
[2021-05-26 06:19] LABS: Calcium 7.6 MG/DL (8.5-10.1); Osmolality,Calculated 274.7 MOS/KG (273-304); Potassium 3.6 MMOL/L (3.5-5.1)
[2021-05-26 06:22] LABS: Albumin 1.8 G/DL (3.4-5.0); Bilirubin,Direct 2.17 MG/DL (0.0-0.20); Bilirubin,Indirect 2.2 MG/DL (0.0-1.0); Bilirubin,Total 4.4 MG/DL (0.20-1.00); Total Protein 4.7 G/DL (6.4-8.2)
[2021-05-26 06:25] LABS: Eosinophils # 0.2 10*3/uL (0.0-0.87); Eosinophils % 6.1 % (0.00-10.9); Hematocrit 38.5 VOL% (42.0-52.0); Immature Granulocytes % 0.3 %; Immature Granulocytes Absolute 0.01 #; Lymphocytes % 30.9 % (21.2-54.2); Mean Corpuscular HGB Conc 33.8 GM/DL (32-36); Mean Corpuscular Volume 105.8 FL (87-102); Mean Platelet Volume 10.6 FL (9.6-12.0); Monocytes % 9.9 % (1.7-12.7); Neutrophils % 51.8 % (38.7-73.9); Red Blood Count 3.64 MC/CUMM (3.8-5.5); Red Cell Distribution Width 13.4 % (9.3-17.3); White Blood Count 3.1 T/CUMM (4-12)
[2021-05-26 06:39] LABS: Platelet Count 29 T/CUMM (130-400)
[2021-05-26 06:46] LABS: Hypochromia Slight
[2021-05-26 06:47] LABS: Burr Cells Slight; Microcytosis Slight; Platelet Estimate Decreased
[2021-05-26] MEDS: TAMSULOSIN 0.4 MG CAPSULE PO SCH ×2 (09:15→20:13)
[2021-05-26] MEDS: RIFAXIMIN 550 MG TABLET PO SCH ×2 (09:15→20:13)
[2021-05-26] MEDS: LINEZOLID 600 MG TABLET PO SCH ×2 (09:16→20:14)
[2021-05-26] MEDS: PANTOPRAZOLE 40 MG TABLET PO SCH (09:16)
[2021-05-26] MEDS: SPIRONOLACTONE 25 MG TABLET PO SCH (09:16)
[2021-05-26] MEDS: COLESEVELAM 625 MG TABLET PO SCH ×2 (09:16→19:20)
[2021-05-26] MEDS: INSULIN LISPRO 100 UNIT/ML SUBCUT SCH ×4 (09:50→20:17)
[2021-05-26] MEDS: DESITIN 4OZ/NYSTATIN 15 GRAM MIXTURE PASTE TOP SCH ×2 (19:19→20:14)
[2021-05-26] MEDS: LACTATED RINGERS 1,000 ML IV SCH (19:20)
[2021-05-27 00:10] LABS: Bacteria,Urine Occasional /HPF (Few); Bilirubin,Urine Negative (Negative); Blood, Urine Large mg/dL (Negative); Glucose,Urine (UA) Negative (Negative); Ketones,Urine Negative (Negative); Mucus,Urine Occasional /LPF (Occasional); Nitrite,Urine Negative (Negative); Protein,Urine 30 MG/DL; RBC,Urine 615 /HPF (0-4); Urine Appearance CLEAR (Clear); Urine Color Amber (Yellow); Urine Specific Gravity 1.024 (1.001-1.035); Urine Urobilinogen < 2.0 EU/DL (<2.0)
[2021-05-27] MEDS: CLOTRIMAZOLE/BETAMETHASONE CREAM 15 GM TUBE TOP SCH ×3 (01:05→20:08)
[2021-05-27] MEDS: oxyCODONE/ACETAMINOPHEN 5-325 MG TABLET PO PRN ×3 (04:18→22:44)
[2021-05-27 06:09] LABS: Eosinophils # 0.2 10*3/uL (0.0-0.87); Eosinophils % 5.5 % (0.00-10.9); Hemoglobin 13.4 GM/DL (14.0-18.0); Immature Granulocytes % 0.6 %; Immature Granulocytes Absolute 0.02 #; Lymphocytes # 0.7 10*3/uL (1.4-4.0); Lymphocytes % 22.1 % (21.2-54.2); Mean Corpuscular HGB Conc 34.4 GM/DL (32-36); Mean Platelet Volume 9.7 FL (9.6-12.0); Monocytes % 10.7 % (1.7-12.7); Neutrophils % 60.1 % (38.7-73.9); Red Blood Count 3.75 MC/CUMM (3.8-5.5); Red Cell Distribution Width 13.4 % (9.3-17.3); White Blood Count 3.1 T/CUMM (4-12)
[2021-05-27 06:14] LABS: Platelet Count 32 T/CUMM (130-400)
[2021-05-27 06:27] LABS: Calcium 7.5 MG/DL (8.5-10.1); Osmolality,Calculated 274.7 MOS/KG (273-304); Potassium 3.9 MMOL/L (3.5-5.1)
[2021-05-27 06:33] LABS: Platelet Estimate Decreased
[2021-05-27] MEDS: INSULIN LISPRO 100 UNIT/ML SUBCUT SCH ×4 (07:30→20:13)
[2021-05-27] MEDS: SPIRONOLACTONE 25 MG TABLET PO SCH (09:27)
[2021-05-27] MEDS: PANTOPRAZOLE 40 MG TABLET PO SCH (09:27)
[2021-05-27] MEDS: LINEZOLID 600 MG TABLET PO SCH ×2 (09:27→20:13)
[2021-05-27] MEDS: TAMSULOSIN 0.4 MG CAPSULE PO SCH ×2 (09:27→20:12)
[2021-05-27] MEDS: DESITIN 4OZ/NYSTATIN 15 GRAM MIXTURE PASTE TOP SCH ×2 (09:27→20:13)
[2021-05-27] MEDS: COLESTIPOL 1 GM TABLET PO SCH ×2 (09:27→20:12)
[2021-05-27] MEDS: RIFAXIMIN 550 MG TABLET PO SCH ×2 (09:27→20:12)
[2021-05-28 05:58] LABS: Basophils % 0.9 % (0.0-0.8); Eosinophils # 0.2 10*3/uL (0.0-0.87); Eosinophils % 5.4 % (0.00-10.9); Hematocrit 40.1 VOL% (42.0-52.0); Hemoglobin 13.9 GM/DL (14.0-18.0); Immature Granulocytes % 0.6 %; Immature Granulocytes Absolute 0.02 #; Lymphocytes # 0.6 10*3/uL (1.4-4.0); Mean Corpuscular HGB Conc 34.7 GM/DL (32-36); Mean Corpuscular Volume 103.9 FL (87-102); Monocytes % 10.3 % (1.7-12.7); Neutrophils % 64.8 % (38.7-73.9); Red Blood Count 3.86 MC/CUMM (3.8-5.5); Red Cell Distribution Width 13.4 % (9.3-17.3); White Blood Count 3.5 T/CUMM (4-12)
[2021-05-28] MEDS: oxyCODONE/ACETAMINOPHEN 5-325 MG TABLET PO PRN ×2 (06:01→15:44)
[2021-05-28 06:04] LABS: Platelet Count 38 T/CUMM (130-400)
[2021-05-28 06:15] LABS: Calcium 7.9 MG/DL (8.5-10.1); Osmolality,Calculated 275.7 MOS/KG (273-304); Potassium 4.2 MMOL/L (3.5-5.1)
[2021-05-28 06:26] LABS: Platelet Estimate Decreased
[2021-05-28] MEDS: LINEZOLID 600 MG TABLET PO SCH (08:48)
[2021-05-28] MEDS: TAMSULOSIN 0.4 MG CAPSULE PO SCH ×2 (08:49→21:27)
[2021-05-28] MEDS: PANTOPRAZOLE 40 MG TABLET PO SCH (08:49)
[2021-05-28] MEDS: RIFAXIMIN 550 MG TABLET PO SCH ×2 (08:49→21:28)
[2021-05-28] MEDS: SPIRONOLACTONE 25 MG TABLET PO SCH (08:49)
[2021-05-28] MEDS: COLESTIPOL 1 GM TABLET PO SCH ×2 (08:51→21:28)
[2021-05-28] MEDS: CLOTRIMAZOLE/BETAMETHASONE CREAM 15 GM TUBE TOP SCH ×2 (08:51→21:28)
[2021-05-28] MEDS: DESITIN 4OZ/NYSTATIN 15 GRAM MIXTURE PASTE TOP SCH ×2 (08:51→21:28)
[2021-05-28] MEDS: INSULIN LISPRO 100 UNIT/ML SUBCUT SCH ×4 (09:40→20:13)
[2021-05-28] MEDS: DIPHENOXYLATE/ATROPINE 2.5-0.025 MG TABLET PO SCH ×2 (11:06→21:28)
[2021-05-28] MEDS: SPIRONOLACTONE 100 MG TABLET PO SCH (11:06)
[2021-05-28] MEDS: FUROSEMIDE 20 MG TABLET PO SCH (16:20)
[2021-05-28] MEDS: ACETAMINOPHEN 325 MG TABLET PO PRN (22:52)
[2021-05-29 07:16] LABS: Basophils % 0.8 % (0.0-0.8); Eosinophils # 0.1 10*3/uL (0.0-0.87); Eosinophils % 3.3 % (0.00-10.9); Hemoglobin 13.1 GM/DL (14.0-18.0); Immature Granulocytes % 0.8 %; Immature Granulocytes Absolute 0.03 #; Lymphocytes # 0.7 10*3/uL (1.4-4.0); Lymphocytes % 16.4 % (21.2-54.2); Mean Corpuscular HGB Conc 34.5 GM/DL (32-36); Mean Corpuscular Volume 103.5 FL (87-102); Mean Platelet Volume 8.8 FL (9.6-12.0); Monocytes % 7.8 % (1.7-12.7); Neutrophils % 70.9 % (38.7-73.9); Red Blood Count 3.67 MC/CUMM (3.8-5.5); Red Cell Distribution Width 13.3 % (9.3-17.3)
[2021-05-29 07:17] LABS: Platelet Count 34 T/CUMM (130-400)
[2021-05-29 07:24] LABS: Calcium 8.1 MG/DL (8.5-10.1); Potassium 4.4 MMOL/L (3.5-5.1)
[2021-05-29 07:44] LABS: Eosinophils 1 % (0-10); Lymphocytes 10 % (20-55); Platelet Estimate Decreased; Segmented Neutrophils 87 % (50-85); Total Cells Counted 100
[2021-05-29] MEDS ORDERED: APIXABAN 5 MG TABLET PO SCH (09:00)
[2021-05-29] MEDS: INSULIN LISPRO 100 UNIT/ML SUBCUT SCH ×2 (09:39→12:18)
[2021-05-29] MEDS: RIFAXIMIN 550 MG TABLET PO SCH (09:42)
[2021-05-29] MEDS: SPIRONOLACTONE 100 MG TABLET PO SCH (09:42)
[2021-05-29] MEDS: FUROSEMIDE 20 MG TABLET PO SCH (09:43)
[2021-05-29] MEDS: PANTOPRAZOLE 40 MG TABLET PO SCH (09:43)
[2021-05-29] MEDS: DESITIN 4OZ/NYSTATIN 15 GRAM MIXTURE PASTE TOP SCH (09:43)
[2021-05-29] MEDS: ACETAMINOPHEN 325 MG TABLET PO PRN (09:43)
[2021-05-29] MEDS: TAMSULOSIN 0.4 MG CAPSULE PO SCH (09:43)
[2021-05-29] MEDS: COLESTIPOL 1 GM TABLET PO SCH (09:43)
[2021-05-29] MEDS: CLOTRIMAZOLE/BETAMETHASONE CREAM 15 GM TUBE TOP SCH (09:43)
[2021-05-29] MEDS: DIPHENOXYLATE/ATROPINE 2.5-0.025 MG TABLET PO SCH (09:43)
[2021-05-29 11:39] VITALS: BP 130/55
== END 2021-05-29 12:55 | disposition hospice, inpatient (51) | DRG 872 ==
LOC: N.ED 20:49 → N.EDINP 05-21 01:15 → SUATTDRO 05-21 01:15 → N.5E 05-21 15:54
PROVIDERS: ADMIT Internal Medicine; ATTEND Internal Medicine